=== PATIENT | female | born 1955 | race American Indian/Alaskan Native ===

== ENCOUNTER 2016-03-21 01:06 | Inpatient (IN) | payer OTHER ==
[2016-03-21] MEDS ORDERED: ZOFRAN IV ONE (01:38)
[2016-03-21] MEDS ORDERED: NACL 0.9% 1000 ML 1,000 ML IV ONE (01:38)
[2016-03-21 02:12] LABS: Mean Corpuscular HGB Conc 31 % (30-34); Mean Corpuscular Hemoglobin 32 pg (28-32); Mean Corpuscular Volume 104 fl (79-97); Platelet Count 202 K/mm3 (140-440); Red Blood Count 4.43 M/mm3 (3.65-5.03); Red Cell Distribution Width 19.5 % (13.2-15.2)
[2016-03-21 02:14] LABS: Hematocrit 46.3 % (30.3-42.9); Hemoglobin 14.4 gm/dl (10.1-14.3)
[2016-03-21 02:38] LABS: Alanine Aminotransferase 16 units/L (7-56); Albumin 4.8 g/dL (3.9-5); Albumin/Globulin Ratio 1.4 %; Alkaline Phosphatase 86 units/L (35-129); BUN/Creatinine Ratio 9.09; Bilirubin,Total 0.5 mg/dL (0.1-1.2); Blood Urea Nitrogen 10 mg/dL (7-17); Calcium 8.8 mg/dL (8.4-10.2); Chloride 88.7 mmol/L (98-107); Glucose 105 mg/dL (65-100); Potassium 5.7 mmol/L (3.6-5.0); Sodium 137 mmol/L (137-145); Total Protein 8.2 g/dL (6.3-8.2)
[2016-03-21 02:44] LABS: Anion Gap 49 mmol/L
[2016-03-21 02:46] LABS: Carbon Dioxide 5 mmol/L (22-30); Lipase 747 units/L (13-60)
[2016-03-21] MEDS ORDERED: NACL 0.9% 500 ML 500 ML IV ONE (03:13)
--- NOTE | 2016-03-21 03:14 | Emergency Department Report ---
ED General Adult HPI - General Chief complaint: Abdominal Pain Stated complaint: VOMITING Time Seen by Provider: 03/21/16 02:59 Source: patient, RN notes reviewed, old records reviewed Mode of arrival: Stretcher Limitations: No Limitations - History of Present Illness Initial comments: This is a 60-year-old female. I have evaluated her in the past. Primary care doctors with the [facility]. Past medical history includes hypertension, breast cancer, lumpectomy, status post radiation therapy. Patient recently admitted to the hospital for anemia and syncope. She was found to have a dilated cardiomyopathy with an ejection fraction of 35%. Patient declined cardiac catheterization. Patient also reports a history of pancreatitis. Patient complains of mild nausea and vomiting and abdominal cramping. She reports vomiting numerous times. Nonbloody, nonbilious. No irritative or obstructive urinary symptoms. Feels dizzy and lightheaded. Feels weak. These like her pancreatitis is acting up. No chest pain. Mild shortness of breath secondary to generalized fatigue. Patient was given pain medication and nausea medication prior to my evaluation. She reports that she feels improved at this time. -: Gradual Radiation: abdomen Quality: aching Consistency: now resolved Improves with: medication, rest Worsens with: none Associated Symptoms: loss of appetite, malaise, nausea/vomiting, weakness - Related Data Home Medications Medication Instructions Recorded Confirmed Last Taken No Known Home Medications [No 03/21/16 03/21/16 Unknown Reported Home Medications] Allergies Allergy/AdvReac Type Severity Reaction Status Date / Time No Known Allergies Allergy Unverified 01/12/15 19:20 ED Review of Systems ROS: Stated complaint: VOMITING Other details as noted in HPI Constitutional: malaise, weakness Eyes: as per HPI ENT: ear pain Cardiovascular: as per HPI Gastrointestinal: as per HPI, abdominal pain Genitourinary: as per HPI Musculoskeletal: as per HPI Skin: as per HPI Neurological: as per HPI, weakness ED Past Medical Hx - Past Medical History Hx Hypertension: Yes Additional medical history: AFib - Surgical History Additional Surgical History: LUMPECTOMY, cardiac cath 2 years ago - Social History Smoking Status: Current Every Day Smoker Substance Use Type: Alcohol - Medications Home Medications: Home Medications Medication Instructions Recorded Confirmed Last Taken Type No Known Home Medications [No 03/21/16 03/21/16 Unknown History Reported Home Medications] ED Physical Exam - General Limitations: No Limitations General appearance: alert, in no apparent distress - Head Head exam: Present: atraumatic, normocephalic - Eye Eye exam: Present: normal appearance - ENT ENT exam: Present: normal exam, normal orophraynx, mucous membranes moist, normal external ear exam - Neck Neck exam: Present: normal inspection, full ROM. Absent: tenderness, meningismus - Respiratory Respiratory exam: Present: normal lung sounds bilaterally. Absent: respiratory distress, wheezes, rales, rhonchi, stridor, chest wall tenderness - Cardiovascular Cardiovascular Exam: Present: regular rate, normal rhythm, normal heart sounds. Absent: bradycardia, tachycardia, irregular rhythm, systolic murmur, diastolic murmur, rubs, gallop - GI/Abdominal GI/Abdominal exam: Present: soft, normal bowel sounds. Absent: distended, tenderness, guarding, rebound, rigid - Extremities Exam Extremities exam: Present: normal inspection, full ROM, normal capillary refill. Absent: tenderness, pedal edema, joint swelling, calf tenderness - Back Exam Back exam: Present: normal inspection, full ROM. Absent: tenderness, CVA tenderness (R), CVA tenderness (L), muscle spasm, paraspinal tenderness, vertebral tenderness - Neurological Exam Neurological exam: Present: alert (there is no past pointing. Normal heel-to- montoya. Negative pronator drift.), oriented X3, other (Extraocular movements intact. Tongue midline. No facial droop. Facial sensation intact to light touch in the V1, V2, V3 distribution bilaterally. 5 and 5 strength in 4 extremities.. Sensation is intact to light touch in 4 extremities.). Absent: motor sensory deficit - Psychiatric Psychiatric exam: Present: normal affect, normal mood - Skin Skin exam: Present: warm, dry, intact, normal color. Absent: rash ED Course Vital Signs 03/21/16 03/21/16 03/21/16 01:20 01:23 01:30 Temperature 98.8 F Pulse Rate 99 H 98 H Pulse Rate [ Bilateral Throughout] Respiratory 20 20 Rate Respiratory Rate [Bilateral Throughout] Blood Pressure 157/73 144/82 Blood Pressure [Left] O2 Sat by Pulse 100 100 100 Oximetry 03/21/16 03/21/16 03/21/16 01:34 01:41 01:51 Temperature 98.1 F Pulse Rate 104 H 89 Pulse Rate [ Bilateral Throughout] Respiratory 20 23 Rate Respiratory Rate [Bilateral Throughout] Blood Pressure 148/79 148/79 Blood Pressure [Left] O2 Sat by Pulse 100 100 Oximetry 03/21/16 03/21/16 03/21/16 02:00 02:11 02:21 Temperature Pulse Rate 91 H 107 H 103 H Pulse Rate [ Bilateral Throughout] Respiratory 18 18 17 Rate Respiratory Rate [Bilateral Throughout] Blood Pressure 175/88 175/88 175/88 Blood Pressure [Left] O2 Sat by Pulse 100 100 100 Oximetry 03/21/16 03/21/16 03/21/16 02:31 02:41 02:51 Temperature Pulse Rate 106 H 89 90 Pulse Rate [ Bilateral Throughout] Respiratory 17 16 17 Rate Respiratory Rate [Bilateral Throughout] Blood Pressure 175/88 175/88 175/88 Blood Pressure [Left] O2 Sat by Pulse 100 100 100 Oximetry 03/21/16 03/21/16 03/21/16 03:00 05:48 05:50 Temperature Pulse Rate 113 H 107 H 105 H Pulse Rate [ Bilateral Throughout] Respiratory 17 22 19 Rate Respiratory Rate [Bilateral Throughout] Blood Pressure 176/86 176/86 176/86 Blood Pressure [Left] O2 Sat by Pulse 100 100 100 Oximetry 03/21/16 03/21/16 03/21/16 06:00 06:10 06:20 Temperature Pulse Rate 100 H 112 H 103 H Pulse Rate [ 102 H Bilateral Throughout] Respiratory 15 19 17 Rate Respiratory 16 Rate [Bilateral Throughout] Blood Pressure 176/86 176/86 176/86 Blood Pressure [Left] O2 Sat by Pulse 100 99 100 Oximetry 03/21/16 03/21/16 03/21/16 06:30 06:40 06:47 Temperature Pulse Rate 97 H 98 H Pulse Rate [ 104 H Bilateral Throughout] Respiratory 12 13 Rate Respiratory 16 Rate [Bilateral Throughout] Blood Pressure 176/86 176/86 Blood Pressure [Left] O2 Sat by Pulse 100 100 Oximetry 03/21/16 03/21/16 03/21/16 06:50 07:00 07:10 Temperature Pulse Rate 108 H 99 H 99 H Pulse Rate [ Bilateral Throughout] Respiratory 26 H 19 18 Rate Respiratory Rate [Bilateral Throughout] Blood Pressure 176/86 151/70 151/70 Blood Pressure [Left] O2 Sat by Pulse 100 100 100 Oximetry 03/21/16 03/21/16 03/21/16 07:20 07:30 07:40 Temperature Pulse Rate 95 H 126 H 98 H Pulse Rate [ Bilateral Throughout] Respiratory 14 18 15 Rate Respiratory Rate [Bilateral Throughout] Blood Pressure 151/70 151/70 123/70 Blood Pressure [Left] O2 Sat by Pulse 100 100 100 Oximetry 03/21/16 03/21/16 03/21/16 07:50 08:00 08:10 Temperature 98.5 F Pulse Rate 99 H 108 H 97 H Pulse Rate [ Bilateral Throughout] Respiratory 15 13 24 Rate Respiratory Rate [Bilateral Throughout] Blood Pressure 123/70 143/76 143/76 Blood Pressure 143/78 [Left] O2 Sat by Pulse 100 100 100 Oximetry 03/21/16 03/21/16 03/21/16 08:20 08:30 08:40 Temperature Pulse Rate 96 H 95 H 93 H Pulse Rate [ Bilateral Throughout] Respiratory 18 18 19 Rate Respiratory Rate [Bilateral Throughout] Blood Pressure 143/76 159/77 159/77 Blood Pressure [Left] O2 Sat by Pulse 100 100 100 Oximetry 03/21/16 03/21/16 03/21/16 08:50 09:00 09:10 Temperature Pulse Rate 108 H 94 H 99 H Pulse Rate [ Bilateral Throughout] Respiratory 16 21 22 Rate Respiratory Rate [Bilateral Throughout] Blood Pressure 159/77 153/71 153/71 Blood Pressure [Left] O2 Sat by Pulse 100 99 100 Oximetry 03/21/16 09:20 Temperature Pulse Rate 97 H Pulse Rate [ Bilateral Throughout] Respiratory 18 Rate Respiratory Rate [Bilateral Throughout] Blood Pressure 153/71 Blood Pressure [Left] O2 Sat by Pulse 100 Oximetry - Reevaluation(s) Reevaluation #1: 03/21/16 05:19 Differential diagnosis: Orthostasis, near vagal event, pancreatitis, colitis, diverticulitis, pneumonia, urinary tract infection Assessment and plan: 60-year-old female with elevated lipase, anion gap acidosis , metabolic acidosis, most likely secondary to nausea and vomiting. Abdomen is soft and benign. Chest x-rays within normal limits. CT scan of the abdomen and pelvis demonstrates normal appendix but suggests colitis. She will be given gentle IV fluid hydration. She will be given IV antibiotics, and she is found to be somewhat hyperkalemic with minimal hemolysis. Given that CAT scan demonstrates colitis, I will withhold Kayexalate. She will be treated with albuterol, sodium bicarbonate, insulin, dextrose. We will continue fluid resuscitation. She is not profoundly via overloaded at this time. She reports that she feels much improved. Case is discussed with the Hospital physician, Dr. Dorado, who accepts the patient to her service for colitis, with metabolic acidosis, and electrolyte derangement. 03/21/16 05:20 03/21/16 05:26 ED Medical Decision Making - Lab Data Result diagrams: 03/21/16 02:01 03/21/16 11:06 Vital Signs 03/21/16 03/21/16 01:20 01:34 Temperature 98.8 F 98.1 F Pulse Rate 99 H Respiratory 20 Rate Blood Pressure 157/73 O2 Sat by Pulse 100 Oximetry Lab Results 03/21/16 03/21/16 03/21/16 Range/Units 02:01 02:01 03:09 WBC 12.0 H (4.5-11.0) K/mm3 RBC 4.43 (3.65-5.03) M/mm3 Hgb 14.4 H (10.1-14.3) gm/dl Hct 46.3 H (30.3-42.9) % MCV 104 H (79-97) fl MCH 32 (28-32) pg MCHC 31 (30-34) % RDW 19.5 H (13.2-15.2) % Plt Count 202 (140-440) K/mm3 VBG pH (7.320-7.420) Sodium 137 (137-145) mmol/L Potassium 5.7 H (3.6-5.0) mmol/L Chloride 88.7 L (98-107) mmol/L Carbon Dioxide 5 L* (22-30) mmol/L Anion Gap 49 mmol/L BUN 10 (7-17) mg/dL Creatinine 1.1 (0.7-1.2) mg/dL Estimated GFR > 60 ml/min BUN/Creatinine Ratio 9.09 % Glucose 105 H (65-100) mg/dL POC Glucose 92 (70-105) Calcium 8.8 (8.4-10.2) mg/dL Magnesium (1.7-2.3) mg/dL Total Bilirubin 0.5 (0.1-1.2) mg/dL AST 42 H (5-40) units/L ALT 16 (7-56) units/L Alkaline Phosphatase 86 (35-129) units/L NT-Pro-B Natriuret Pep 220.4 (0-900) pg/mL Total Protein 8.2 (6.3-8.2) g/dL Albumin 4.8 (3.9-5) g/dL Albumin/Globulin Ratio 1.4 % Lipase 747 H (13-60) units/L 03/21/16 03/21/16 Range/Units 04:26 04:26 WBC (4.5-11.0) K/mm3 RBC (3.65-5.03) M/mm3 Hgb (10.1-14.3) gm/dl Hct (30.3-42.9) % MCV (79-97) fl MCH (28-32) pg MCHC (30-34) % RDW (13.2-15.2) % Plt Count (140-440) K/mm3 VBG pH 7.140 L* (7.320-7.420) Sodium 137 (137-145) mmol/L Potassium 6.4 H* (3.6-5.0) mmol/L Chloride 92.7 L (98-107) mmol/L Carbon Dioxide 7 L* (22-30) mmol/L Anion Gap 44 mmol/L BUN 9 (7-17) mg/dL Creatinine 1.0 (0.7-1.2) mg/dL Estimated GFR > 60 ml/min BUN/Creatinine Ratio 9.00 % Glucose 105 H (65-100) mg/dL POC Glucose (70-105) Calcium 8.0 L (8.4-10.2) mg/dL Magnesium 1.6 L (1.7-2.3) mg/dL Total Bilirubin (0.1-1.2) mg/dL AST (5-40) units/L ALT (7-56) units/L Alkaline Phosphatase (35-129) units/L NT-Pro-B Natriuret Pep (0-900) pg/mL Total Protein (6.3-8.2) g/dL Albumin (3.9-5) g/dL Albumin/Globulin Ratio % Lipase (13-60) units/L - Radiology Data Radiology results: report reviewed, image reviewed X-ray chest negative. Negative for acute disease. CT scan of the abdomen and pelvis suggest colitis. Critical care attestation.: If time is entered above; I have spent that time in minutes in the direct care of this critically ill patient, excluding procedure time. ED Disposition Clinical Impression: Hypomagnesemia, Metabolic acidosis, Colitis, Hyperkalemia Disposition: OP ADMITTED IP TO THIS HOSP Is pt being admited?: Yes Does the pt Need Aspirin: No Condition: Stable
[2016-03-21] MEDS ORDERED: NACL ONE (03:21)
[2016-03-21] MEDS ORDERED: NACL 0.9% 500 ML IV SCH (04:00)
--- NOTE | 2016-03-21 04:21 | Cat Scan Report ---
FINAL REPORT PROCEDURE: CT ABDOMEN PELVIS W CON TECHNIQUE: Computerized axial tomography of the abdomen and pelvis was performed after the IV injection of iodinated nonionic contrast. HISTORY: pancreatitis COMPARISON: No prior studies are available for comparison. FINDINGS: Visualized lower thorax: No significant abnormality. Liver: The liver is fatty infiltrated.. Spleen: Normal size and attenuation. Gallbladder and biliary system: Normal. Pancreas: The pancreas has a normal size. No pseudocyst. No masses.. Adrenals: Normal. Kidneys: Both kidneys have normal size. No hydronephrosis. No renal stones or masses. GI tract: The stomach is normal. The small bowel has a normal caliber. No obstruction is seen. There is some thickening of the bowel wall involving the cecum, ascending colon and a portion of the transverse colon. Colitis is suspected. The appendix is not visualized on this study. There is moderate fecal debris throughout colon.. Lymph nodes and mesentery: Normal. Vasculature: Moderate atherosclerosis of the aorta and branching vessels. Bladder: Normal. Reproductive organs: The uterus is enlarged and as retroverted. There are multiple small masses identified on the uterus. Fibroid formation is suspected. No adnexal masses.. Peritoneum: No free fluid. Musculoskeletal structures: No significant abnormality. Other: None. IMPRESSION: There is some thickening of the bowel wall involving the cecum, ascending colon in the portion of transverse colon, colitis is suspected. No complication at this time. No evidence of intestinal or urinary tract obstruction. There is moderate fecal debris throughout the colon. The uterus is retroverted and slightly enlarged. There are multiple small masses on the uterus, fibroid formation is suspected. Fatty infiltration of the liver is noted.
[2016-03-21 04:58] LABS: Blood Urea Nitrogen 9 mg/dL (7-17); Chloride 92.7 mmol/L (98-107); Glucose 105 mg/dL (65-100); Magnesium 1.6 mg/dL (1.7-2.3); Sodium 137 mmol/L (137-145)
[2016-03-21 05:11] LABS: Potassium 6.4 mmol/L (3.6-5.0)
[2016-03-21 05:13] LABS: Anion Gap 44 mmol/L; Carbon Dioxide 7 mmol/L (22-30)
[2016-03-21] MEDS ORDERED: SODIUM BICARBONATE IV ONE ×2 (05:14)
[2016-03-21] MEDS ORDERED: D50W (25GM) IV ONE (05:14)
[2016-03-21] MEDS ORDERED: PROVENTIL IH ONE ×2 (05:14→05:15)
[2016-03-21] MEDS ORDERED: LEVAQUIN 500MG/100ML 500 MG/100 ML BAG IV ONE (05:14)
[2016-03-21] MEDS ORDERED: MAGNESIUM SULFATE 2GM/50ML 2 GM/50 ML BAG IV ONE (05:15)
[2016-03-21] MEDS ORDERED: REGLAN IV ONE (05:20)
--- NOTE | 2016-03-21 05:49 | History and Physical Report ---
History of Present Illness Date of examination: 03/21/16 Date of admission: 03/21/16 Chief complaint: Nausea and vomiting and abdominal pain History of present illness: This is a 60 y/o female with h/o hypertension, breast cancer status post radiation therapy and lumpectomy, previous history of pancreatitis presented with nausea and vomiting and abdominal cramping. She described her vomiting is nonbloody nonbilious. Her symptom is progressively getting worse and she was feeling dizzy and lightheaded. In the ER her potassium noted to be 6.7, magnesium 1.[address] scan of the abdomen and pelvis showed possible colitis. She is getting admitted for further management and evaluation. Past medical History: h/o h/o hypertension, breast cancer status post radiation therapy and lumpectomy, previous history of pancreatitis, cardiomyopathy with EF 35%. Primary care doctors with the [place]. Past surgical History: s/p Lumpectomy. Social History: Lives with family, denies any smoking, drinking and elicit drug abuse. Family History: None. Review of System: Constitutional: no fever, no chills, no weight loss Ears, eyes, nose, mouth and throat: no nasal congestion, no nasal discharge, no sinus pressure, no vision change, no red eye. Neck: No neck pain or rigidity. Cardiovascular: No chest pain, no orthopnea, no palpitations, no leg swelling Respiratory: No shortness of breath, no cough, no congestion, no wheezing Gastrointestinal: + abdominal pain, + nausea, + vomiting Genitourinary : no dysuria, no hematuria Musculoskeletal: no joint swelling or muscle ache Integumentary: no rash, no pruritis Neurological: no parathesias, no numbness, no tingling Endocrine: no cold or heat intolerance, no polyuria or polydipsia Hematologic/Lymphatic: no easy bruising, no easy bleeding, no gland swelling Allergic/Immunologic: no urticaria, no angioedema. Medications and Allergies Allergies Allergy/AdvReac Type Severity Reaction Status Date / Time No Known Allergies Allergy Unverified 01/12/15 19:20 Home Medications Medication Instructions Recorded Confirmed Last Taken Type No Known Home Medications [No 03/21/16 03/21/16 Unknown History Reported Home Medications] Active Meds: Active Medications Levofloxacin/Dextrose (Levaquin 500mg/100ml) 500 mg in 100 mls @ 100 mls/hr IV ONCE ONE Stop: 03/21/16 06:13 Metronidazole (Flagyl 500 Mg/100 Ml) 500 mg in 100 mls @ 200 mls/hr IV NOW NR Stop: 03/21/16 06:29 Exam - Physical Exam Narrative exam: GENERAL: This is well-developed well-nourished WF lying on bed appeared to be in no discomfort. HEENT: Normocephalic. Atraumatic. Extraocular motions are intact. No conjunctival congestion or icterus. Patient has moist mucous membranes. External auditory canal and nares patent bilaterally. NECK: Supple. Trachea midline. No JVD, thyromagaly or lymphadenopathy. CHEST/LUNGS: Clear to auscultated bilaterally. There is no respiratory distress noted, breathing nonlabored. No wheezes crackles or rhonchi. HEART/CARDIOVASCULAR: Regular in rate and rhythm. PMI at the apex. There is no gallop rub or murmur. ABDOMEN: Abdomen is soft, mild diffuse tenderness. Patient has normal bowel sounds. There is no abdominal distention. No organomagaly or rigidity. SKIN: There is no rash, no erythrema. There is no diaphoresis. Warm and dry. NEUROLOGY: The patient is awake, alert, and oriented. The patient is cooperative. The patient has normal speech. No focal motor deficit. MUSCULOSKELETAL: No joint effusion or tenderness. Muscle strength equal bilaterally. No muscle wasting. EXTRIMITY: No edema, cyanosis or clubbing. PSYCH: No depression or anxiety noted. Cooperative. - Constitutional Vitals: Temp Pulse Resp BP Pulse Ox 98.1 F 99 H 20 157/73 100 03/21/16 01:34 03/21/16 01:20 03/21/16 01:20 03/21/16 01:20 03/21/16 01:20 Results - Labs CBC & Chem 7: 03/21/16 02:01 03/21/16 04:26 Labs: Laboratory Last Values WBC 12.0 K/mm3 (4.5-11.0) H 03/21/16 02:01 RBC 4.43 M/mm3 (3.65-5.03) 03/21/16 02:01 Hgb 14.4 gm/dl (10.1-14.3) H 03/21/16 02:01 Hct 46.3 % (30.3-42.9) H 03/21/16 02:01 MCV 104 fl (79-97) H 03/21/16 02:01 MCH 32 pg (28-32) 03/21/16 02:01 MCHC 31 % (30-34) 03/21/16 02:01 RDW 19.5 % (13.2-15.2) H 03/21/16 02:01 Plt Count 202 K/mm3 (140-440) 03/21/16 02:01 VBG pH 7.140 (7.320-7.420) L* 03/21/16 04:26 Sodium 137 mmol/L (137-145) 03/21/16 04:26 Potassium 6.4 mmol/L (3.6-5.0) H* 03/21/16 04:26 Chloride 92.7 mmol/L (98-107) L 03/21/16 04:26 Carbon Dioxide 7 mmol/L (22-30) L* 03/21/16 04:26 Anion Gap 44 mmol/L 03/21/16 04:26 BUN 9 mg/dL (7-17) 03/21/16 04:26 Creatinine 1.0 mg/dL (0.7-1.2) 03/21/16 04:26 Estimated GFR > 60 ml/min 03/21/16 04:26 BUN/Creatinine Ratio 9.00 % 03/21/16 04:26 Glucose 105 mg/dL (65-100) H 03/21/16 04:26 POC Glucose 92 (70-105) 03/21/16 03:09 Calcium 8.0 mg/dL (8.4-10.2) L 03/21/16 04:26 Magnesium 1.6 mg/dL (1.7-2.3) L 03/21/16 04:26 Total Bilirubin 0.5 mg/dL (0.1-1.2) 03/21/16 02:01 AST 42 units/L (5-40) H 03/21/16 02:01 ALT 16 units/L (7-56) 03/21/16 02:01 Alkaline Phosphatase 86 units/L (35-129) 03/21/16 02:01 NT-Pro-B Natriuret Pep 220.4 pg/mL (0-900) 03/21/16 02:01 Total Protein 8.2 g/dL (6.3-8.2) 03/21/16 02:01 Albumin 4.8 g/dL (3.9-5) 03/21/16 02:01 Albumin/Globulin Ratio 1.4 % 03/21/16 02:01 Lipase 747 units/L (13-60) H 03/21/16 02:01 - Imaging and Cardiology CT scan - abdomen: report reviewed (Thickening of the bowel wall involving the cecum ascending colon and some portion of the transverse colon, colitis is suspected. Moderate fecal debris throughout the colon.) Assessment and Plan Assessment and plan: Sepsis with acute colitis Acute colitis Acute pancreatitis, likely Severe hyperkalemia Severe metabolic acidosis History of CHF with EF 35% Plan: Admit to medicine Place on IV Levaquin and Flagyl We'll get blood culture and stool culture Gentle IV fluid hydration as patient has history of CHF Place on bicarbonate drip Monitor BMP every 6 hours Give insulin D50, calcium chloride, for hyperkalemia avoid kayexlate to avoid colonic necrosis Trend lipase level Keep nothing by mouth for now except med Resume home meds GI and DVT prophylaxis If no improvement of N/V symptoms in 24 hour consult GI It took me about 42 minutes for initial care of this patient including history and physical, reviewing initial lab results and ER documents, placing admission orders, bedside counseling and coordination of care. Advance Directives: Yes VTE prophylaxis?: Mechanical Plan of care discussed with patient/family: Yes
[2016-03-21] MEDS ORDERED: FLAGYL 500 MG/100 ML 500 MG/100 ML BAG IV NR (06:00)
[2016-03-21] MEDS ORDERED: CALCIUM CHLORIDE IV ONE (06:03)
[2016-03-21] MEDS ORDERED: MORPHINE IV PRN (06:03)
[2016-03-21] MEDS ORDERED: TYLENOL PO PRN (06:03)
[2016-03-21] MEDS ORDERED: ZOFRAN IV PRN (06:03)
[2016-03-21] MEDS ORDERED: AMBIEN PO PRN (06:03)
[2016-03-21] MEDS ORDERED: SODIUM BICARBONATE 150 MEQ in D5W 1,000 ML IV ONE (06:08)
--- NOTE | 2016-03-21 06:42 | Admit Criteria Form ---
Admission Criteria Documentation: SEPSIS and OTHER FEBRILE ILLNESS, W/O FOCAL INFECTION Clinical Indications for Admission to Inpatient Care ( Place 'X' for any and all applicable criteria): Admission is indicated for ANY ONE of the following (1)(2)(3)(4): [ ] I. Bacteremia [ ]II. Suspected or identified specific infection requiring hospitalization (eg, meningitis, endocarditis) [ ]III. Hemodynamic instability [ ]IV. Altered mental status [ ]V. Failure or unavailability of outpatient antimicrobial treatment [ ]. Hypoxemia [ ]VII. Seizures [ ]VIII. High-risk febrile neutropenia [ ]IX. Need for parenteral antibiotic in patient who is likely to abuse vascular access device (eg, injection drug user) [A](7) [ ]X. Temperature greater than 104.9 degrees F (40.5 degrees C) (oral) [ X]XI. Inpatient admission required rather than observation care because of ANY ONE of the following: [ ]1) Specific infection identified that is too severe for outpatient treatment or observation care trial [ X]2) Metabolic disorder (eg, hypoglycemia, hyperglycemia, metabolic acidosis) that is severe or persistent [ ]3) Temperature greater than 103.1 degrees F (39.5 degrees C) ( oral) that is not responsive to observation care treatment [ ]4) IV fluid to replace significant ongoing (eg, for over 24 hours) losses (> 3 L/m2 per day) [ ]5) Supplemental oxygen or respiratory treatments for over 24 hours that is performable only in acute inpatient setting [ ]6) Parenteral nutrition regimen need that must be implemented on inpatient basis [ ]7) Strict or protective (eg, laminar flow) isolation [X ]8) Other condition, treatment or monitoring requiring inpatient admission Extended stay beyond goal length of stay may be needed for(1)(3) [ ]a) Sepsis or septic shock(22) [ ]b) Positive blood cultures [ ]c) Insufficient oral intake [ ]d) High-risk febrile neutropenia(29)(30) [ ]e) Continued fever and clinical instability [ ]f) Clinically active comorbid illness (e.g,heart failure, renal failure , diabetes) The original [employer] [facility] [employer] content created by Thuy Mora has been revised. The portions of the content which have been revised are identified through the use of italic text or in bold, and [employer] has neither reviewed nor approved the modified material. All other unmodified content is copyright [facility]. Please see references footnoted in the original [facility] edition 2016 Admission Criteria Met: Yes
[2016-03-21] MEDS ORDERED: D5/0.45NS 1,000 ML IV SCH (07:00)
[2016-03-21] MEDS: FLAGYL 500 MG/100 ML 500 MG/100 ML BAG IV SCH ×3 (07:11→17:02)
--- NOTE | 2016-03-21 07:57 | XRay Report ---
AP CHEST: HISTORY: Chest pain, nausea and vomiting, pancreatitis. AP view of the chest demonstrates a normal mediastinal and cardiac contour with clear lungs and normal bony and soft tissue structures. IMPRESSION: Unremarkable AP chest.
[2016-03-21] MEDS ORDERED: PEPCID IV ONE (09:25)
[2016-03-21] MEDS: PEPCID IV SCH ×2 (10:03→21:34)
--- NOTE | 2016-03-21 11:53 | Progress Note ---
Assessment and Plan Assessment and plan: 1. Sepsis. Continued to trend lactic acid levels. Follow-up blood cultures. Continue IV antibiotic. 2. Acute colitis. ? Ischemic versus infectious. Continue antibiotics as above. Await GI consultation. 3. Acute pancreatitis. Lipase was 747. Continue to follow serial lipase levels. GI consultation pending. 4. Severe hyperkalemia. Patient is status post D 50/insulin, Kayexalate and calcium chloride. 5. Severe metabolic acidosis. Etiology likely secondary to sepsis/colitis. 6. Chronic systolic CHF. Compensated. History Interval history: This is a 60 y/o female with h/o hypertension, breast cancer status post radiation therapy and lumpectomy, previous history of pancreatitis presented with nausea and vomiting and abdominal cramping. She described her vomiting is nonbloody nonbilious. Her symptoms were progressively getting worse and she was feeling dizzy and lightheaded. In the ER her potassium noted to be 6.7, magnesium 1.[address] scan of the abdomen and pelvis showed possible colitis. Hospitalist Physical - Constitutional Vitals: Temp Pulse Resp BP Pulse Ox 98.2 F 102 H 20 135/74 100 03/21/16 11:31 03/21/16 11:31 03/21/16 11:31 03/21/16 11:31 03/21/16 11:31 General appearance: Present: no acute distress, well-nourished - EENT Eyes: Present: PERRL, EOM intact ENT: hearing intact, clear oral mucosa, dentition normal - Neck Neck: Present: supple, normal ROM - Respiratory Respiratory effort: normal Respiratory: bilateral: CTA - Cardiovascular Rhythm: regular Heart Sounds: Present: S1 & S2. Absent: gallop, rub - Extremities Extremities: no ischemia, No edema, Full ROM - Abdominal General gastrointestinal: soft, non-tender, non-distended, normal bowel sounds - Integumentary Integumentary: Present: clear, warm, dry - Neurologic Neurologic: CNII-XII intact, moves all extremities Results - Labs CBC & Chem 7: 03/21/16 02:01 03/21/16 04:26 Labs: Laboratory Last Values WBC 12.0 K/mm3 (4.5-11.0) H 03/21/16 02:01 RBC 4.43 M/mm3 (3.65-5.03) 03/21/16 02:01 Hgb 14.4 gm/dl (10.1-14.3) H 03/21/16 02:01 Hct 46.3 % (30.3-42.9) H 03/21/16 02:01 MCV 104 fl (79-97) H 03/21/16 02:01 MCH 32 pg (28-32) 03/21/16 02:01 MCHC 31 % (30-34) 03/21/16 02:01 RDW 19.5 % (13.2-15.2) H 03/21/16 02:01 Plt Count 202 K/mm3 (140-440) 03/21/16 02:01 VBG pH 7.140 (7.320-7.420) L* 03/21/16 04:26 Sodium 137 mmol/L (137-145) 03/21/16 04:26 Potassium 6.4 mmol/L (3.6-5.0) H* 03/21/16 04:26 Chloride 92.7 mmol/L (98-107) L 03/21/16 04:26 Carbon Dioxide 7 mmol/L (22-30) L* 03/21/16 04:26 Anion Gap 44 mmol/L 03/21/16 04:26 BUN 9 mg/dL (7-17) 03/21/16 04:26 Creatinine 1.0 mg/dL (0.7-1.2) 03/21/16 04:26 Estimated GFR > 60 ml/min 03/21/16 04:26 BUN/Creatinine Ratio 9.00 % 03/21/16 04:26 Glucose 105 mg/dL (65-100) H 03/21/16 04:26 POC Glucose 193 (70-105) H 03/21/16 09:33 Calcium 8.0 mg/dL (8.4-10.2) L 03/21/16 04:26 Magnesium 1.6 mg/dL (1.7-2.3) L 03/21/16 04:26 Total Bilirubin 0.5 mg/dL (0.1-1.2) 03/21/16 02:01 AST 42 units/L (5-40) H 03/21/16 02:01 ALT 16 units/L (7-56) 03/21/16 02:01 Alkaline Phosphatase 86 units/L (35-129) 03/21/16 02:01 NT-Pro-B Natriuret Pep 220.4 pg/mL (0-900) 03/21/16 02:01 Total Protein 8.2 g/dL (6.3-8.2) 03/21/16 02:01 Albumin 4.8 g/dL (3.9-5) 03/21/16 02:01 Albumin/Globulin Ratio 1.4 % 03/21/16 02:01 Lipase 747 units/L (13-60) H 03/21/16 02:01
[2016-03-21 12:06] LABS: Blood Urea Nitrogen 7 mg/dL (7-17); Carbon Dioxide 14 mmol/L (22-30); Chloride 96.4 mmol/L (98-107); Glucose 195 mg/dL (65-100); Potassium 4.7 mmol/L (3.6-5.0); Sodium 141 mmol/L (137-145)
[2016-03-21 12:13] LABS: Anion Gap 35 mmol/L
[2016-03-22] MEDS: FLAGYL 500 MG/100 ML 500 MG/100 ML BAG IV SCH ×3 (00:44→16:39)
--- NOTE | 2016-03-22 04:14 | Consultation ---
REFERRING PHYSICIAN: Dr. Elmer Jorgensen MD INDICATION: 1. Nausea and vomiting. 2. Abdominal pain. HISTORY OF PRESENT ILLNESS: The patient is a 60-year-old black female with history of hypertension, breast cancer, status post radiation and lumpectomy with a reported history of pancreatitis, presents for abdominal pain. The patient reports a history of pancreatitis in the past, secondary to alcohol. She reports she still drinks, but has decreased use as such. The patient reports 2 days, nausea, vomiting, upper abdominal pain. The patient reports she feels the pain was consistent with her previous pancreatitis. She reports no diarrhea, constipation or rectal bleeding. She reports no fevers or chills. The patient subsequently came to the Emergency Room, where she noted to have a lipase of [address] showing possible colitis. Subsequently, she was admitted and GI consulted. No other specific problems or complaints. PAST MEDICAL HISTORY: 1. Hypertension. 2. Breast cancer, status post radiation and lumpectomy. 3. Pancreatitis, secondary to alcohol in the past. 4. Cardiomyopathy. MEDICATIONS: See chart. ALLERGIES: No known drug allergies. SOCIAL HISTORY: Reports alcohol use, now though she reports much decreased versus in the past. FAMILY HISTORY: Negative for colon cancer, IBD, or liver disease. REVIEW OF SYSTEMS: GENERAL: Reports mild weakness. HEENT: No visual complaints or tinnitus. PULMONARY: No shortness of breath. No cough. No chest pain. GASTROINTESTINAL: Reports abdominal pain. All points of 13-point review of systems otherwise negative. PHYSICAL EXAMINATION: VITAL SIGNS: Temperature of 98.4, pulse 93, respirations 20, blood pressure 116/72. GENERAL: Fairly nourished female in no acute distress. HEENT: Pupils equal, round, reactive to light and accommodation. Extraocular movements intact. PULMONARY: Clear to auscultation bilaterally. CARDIOVASCULAR: Regular rhythm. Normal S1, S2. ABDOMEN: Positive bowel sounds. Soft. Mild upper abdominal discomfort, no guarding, no rebound. SKIN: No obvious rashes. LABORATORY DATA: Pertinent for white count of 12, hemoglobin and hematocrit of 14.4 and 46.3, platelet count of 202. Chem-7, sodium of 141, potassium 4.7, chloride 96, CO2 is 14, BUN and creatinine of 7 and 1. LFTs within normal limits. Lipase is 747. CT scan showed mild colitis, left colon. 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 The patient overall is doing better, now reports tolerating clear liquid diet. Management as noted below. PLAN: 1. Antiemetics and pain medication per primary team. 2. Review CT scan. 3. Continue clear liquid diet. We will plan to advance to soft in a.m. if stable. 4. Follow labs including CRP. 5. Continue antibiotics as ordered. 6. If the patient is stable and tolerating p.o. in a.m., probable discharge tomorrow from GI standpoint, we will follow up as an outpatient. JOB# [id number] [facility]
[2016-03-22 05:58] LABS: Basophils % (Auto) 0.3 % (0.0-1.8); Hematocrit 33.6 % (30.3-42.9); Hemoglobin 11.3 gm/dl (10.1-14.3); Mean Corpuscular HGB Conc 34 % (30-34); Mean Corpuscular Hemoglobin 33 pg (28-32); Mean Corpuscular Volume 98 fl (79-97); Platelet Count 144 K/mm3 (140-440); Red Blood Count 3.42 M/mm3 (3.65-5.03); Red Cell Distribution Width 18.4 % (13.2-15.2); White Blood Count 5.1 K/mm3 (4.5-11.0)
[2016-03-22 06:17] LABS: BUN/Creatinine Ratio 6.66; Blood Urea Nitrogen 4 mg/dL (7-17); Carbon Dioxide 29 mmol/L (22-30); Chloride 94.6 mmol/L (98-107); Glucose 108 mg/dL (65-100); Potassium 4.1 mmol/L (3.6-5.0); Sodium 136 mmol/L (137-145)
[2016-03-22 06:25] LABS: Anion Gap 17 mmol/L
--- NOTE | 2016-03-22 09:31 | Gastroenterology Progress Note ---
Assessment and Plan 1. Pancreatitis vs Colitis -Patient states she is feeling much better this AM. NO N/V or abdominal pain -CT does not show inflammation to the pancreas, however does show some mild thickening of the cecum, ascending and transverse colon. The patient has no lower abdominal symptoms or diarrhea. No stool studies have been able to be obtained as the patient has had no BM. Would recommend oral ABX for total of 7 days. Avoid ETOH. -Follow up Lipase/ CRP today, if improved, ok to DC per GI standpoint. I have discussed follow in 2 weeks with the patient, office information given and patient is agreeable to the plan of care. Subjective Date of service: 03/22/16 Interval history: The patient states she is feeling much better, no N/V or abdominal pain, tolerating diet well. Objective - Constitutional Vitals: Temp Pulse Resp BP Pulse Ox 97.9 F 80 20 137/77 99 03/22/16 07:39 03/22/16 07:39 03/22/16 07:39 03/22/16 07:39 03/22/16 07:39 General appearance: no acute distress - EENT Eyes: EOM intact ENT: hearing intact - Neck Neck: supple - Cardiovascular Heart Sounds: Present: S1 & S2 - Gastrointestinal General gastrointestinal: Present: soft, non-tender, normal bowel sounds - Integumentary Integumentary: Present: warm, dry - Neurologic Neurological: alert and oriented x3 - Labs CBC & Chem 7: 03/22/16 04:51 03/22/16 04:51 Labs: Laboratory Results - last 24 hr 03/21/16 03/21/16 03/21/16 09:33 11:06 11:28 WBC RBC Hgb Hct MCV MCH MCHC RDW Plt Count Lymph % (Auto) [place] % (Auto) Eos % (Auto) Baso % (Auto) Lymph # [place] # Eos # Baso # Seg Neutrophils % Seg Neutrophils # Sodium 141 Potassium 4.7 D Chloride 96.4 L Carbon Dioxide 14 L D Anion Gap 35 BUN 7 Creatinine 1.0 Estimated GFR > 60 BUN/Creatinine Ratio 7.00 Glucose 195 H POC Glucose 193 H 199 H Lactic Acid Calcium 9.0 C-Reactive Protein 03/21/16 03/21/16 03/21/16 12:44 16:35 21:26 WBC RBC Hgb Hct MCV MCH MCHC RDW Plt Count Lymph % (Auto) [place] % (Auto) Eos % (Auto) Baso % (Auto) Lymph # [place] # Eos # Baso # Seg Neutrophils % Seg Neutrophils # Sodium Potassium Chloride Carbon Dioxide Anion Gap BUN Creatinine Estimated GFR BUN/Creatinine Ratio Glucose POC Glucose 164 H 148 H Lactic Acid 4.2 H* Calcium C-Reactive Protein 03/22/16 03/22/16 03/22/16 04:51 04:51 04:51 WBC 5.1 RBC 3.42 L Hgb 11.3 D Hct 33.6 D MCV 98 H D MCH 33 H MCHC 34 RDW 18.4 H Plt Count 144 Lymph % (Auto) 26.2 [place] % (Auto) 4.4 Eos % (Auto) 2.0 Baso % (Auto) 0.3 Lymph # 1.3 [place] # 0.2 Eos # 0.1 Baso # 0.0 Seg Neutrophils % 67.1 Seg Neutrophils # 3.4 Sodium 136 L Potassium 4.1 Chloride 94.6 L Carbon Dioxide 29 D Anion Gap 17 BUN 4 L Creatinine 0.6 L Estimated GFR > 60 BUN/Creatinine Ratio 6.66 Glucose 108 H POC Glucose Lactic Acid Calcium 9.0 C-Reactive Protein 2.90 H
[2016-03-22] MEDS ORDERED: LEVAQUIN 750MG/150ML 750 MG/150 ML BAG IV SCH (10:00)
[2016-03-22 10:35] LABS: C-Reactive Protein 2.5 mg/dL (0.00-1.30)
[2016-03-22] MEDS: PEPCID IV SCH ×2 (10:50→21:56)
--- NOTE | 2016-03-22 11:59 | Progress Note ---
Assessment and Plan Assessment and plan: 1. Sepsis. Continued to trend lactic acid levels. Lactic acid better today. Follow-up blood cultures. Continue IV antibiotic. 2. Acute colitis. ? Ischemic versus infectious. Continue antibiotics as above. GI following. Check stool studies. Stool studies were ordered but not collected yet. 3. Acute pancreatitis. Lipase was 747 on admission. Continue to follow serial lipase levels. CT scan shows no findings for pancreatitis. 4. Severe hyperkalemia. Patient is status post D 50/insulin, Kayexalate and calcium chloride. 5. Lactic acidosis. Improved. 6. Chronic systolic CHF. Compensated. History Interval history: No new issues overnight. Patient tolerating by mouth diet. Hospitalist Physical - Constitutional Vitals: Temp Pulse Resp BP Pulse Ox 97.9 F 80 20 137/77 99 03/22/16 07:39 03/22/16 07:39 03/22/16 07:39 03/22/16 07:39 03/22/16 07:39 General appearance: Present: no acute distress, well-nourished - EENT Eyes: Present: PERRL, EOM intact ENT: hearing intact, clear oral mucosa, dentition normal - Neck Neck: Present: supple, normal ROM - Respiratory Respiratory effort: normal Respiratory: bilateral: CTA - Cardiovascular Rhythm: regular Heart Sounds: Present: S1 & S2. Absent: gallop, rub - Extremities Extremities: no ischemia, No edema, Full ROM - Abdominal General gastrointestinal: soft, non-tender, non-distended, normal bowel sounds - Integumentary Integumentary: Present: clear, warm, dry - Neurologic Neurologic: CNII-XII intact, moves all extremities Results - Labs CBC & Chem 7: 03/22/16 04:51 03/22/16 04:51 Labs: Laboratory Last Values WBC 5.1 K/mm3 (4.5-11.0) 03/22/16 04:51 RBC 3.42 M/mm3 (3.65-5.03) L 03/22/16 04:51 Hgb 11.3 gm/dl (10.1-14.3) D 03/22/16 04:51 Hct 33.6 % (30.3-42.9) D 03/22/16 04:51 MCV 98 fl (79-97) H D 03/22/16 04:51 MCH 33 pg (28-32) H 03/22/16 04:51 MCHC 34 % (30-34) 03/22/16 04:51 RDW 18.4 % (13.2-15.2) H 03/22/16 04:51 Plt Count 144 K/mm3 (140-440) 03/22/16 04:51 Lymph % (Auto) 26.2 % (13.4-35.0) 03/22/16 04:51 [place] % (Auto) 4.4 % (0.0-7.3) 03/22/16 04:51 Eos % (Auto) 2.0 % (0.0-4.3) 03/22/16 04:51 Baso % (Auto) 0.3 % (0.0-1.8) 03/22/16 04:51 Lymph # 1.3 K/mm3 (1.2-5.4) 03/22/16 04:51 [place] # 0.2 K/mm3 (0.0-0.8) 03/22/16 04:51 Eos # 0.1 K/mm3 (0.0-0.4) 03/22/16 04:51 Baso # 0.0 K/mm3 (0.0-0.1) 03/22/16 04:51 Seg Neutrophils % 67.1 % (40.0-70.0) 03/22/16 04:51 Seg Neutrophils # 3.4 K/mm3 (1.8-7.7) 03/22/16 04:51 VBG pH 7.140 (7.320-7.420) L* 03/21/16 04:26 Sodium 136 mmol/L (137-145) L 03/22/16 04:51 Potassium 4.1 mmol/L (3.6-5.0) 03/22/16 04:51 Chloride 94.6 mmol/L (98-107) L 03/22/16 04:51 Carbon Dioxide 29 mmol/L (22-30) D 03/22/16 04:51 Anion Gap 17 mmol/L 03/22/16 04:51 BUN 4 mg/dL (7-17) L 03/22/16 04:51 Creatinine 0.6 mg/dL (0.7-1.2) L 03/22/16 04:51 Estimated GFR > 60 ml/min 03/22/16 04:51 BUN/Creatinine Ratio 6.66 % 03/22/16 04:51 Glucose 108 mg/dL (65-100) H 03/22/16 04:51 POC Glucose 148 (70-105) H 03/21/16 21:26 Lactic Acid 2.7 mmol/L (0.7-2.0) H* 03/22/16 09:53 Calcium 9.0 mg/dL (8.4-10.2) 03/22/16 04:51 Magnesium 1.6 mg/dL (1.7-2.3) L 03/21/16 04:26 Total Bilirubin 0.5 mg/dL (0.1-1.2) 03/21/16 02:01 AST 42 units/L (5-40) H 03/21/16 02:01 ALT 16 units/L (7-56) 03/21/16 02:01 Alkaline Phosphatase 86 units/L (35-129) 03/21/16 02:01 C-Reactive Protein 2.50 mg/dL (0.00-1.30) H 03/22/16 09:53 NT-Pro-B Natriuret Pep 220.4 pg/mL (0-900) 03/21/16 02:01 Total Protein 8.2 g/dL (6.3-8.2) 03/21/16 02:01 Albumin 4.8 g/dL (3.9-5) 03/21/16 02:01 Albumin/Globulin Ratio 1.4 % 03/21/16 02:01 Lipase 644 units/L (13-60) H 03/22/16 09:53
[2016-03-22] MEDS ORDERED: FLUARIX QUAD 2016-2017(36 MOS+) IM ONE (12:00)
[2016-03-23] MEDS: FLAGYL 500 MG/100 ML 500 MG/100 ML BAG IV SCH (02:01)
--- NOTE | 2016-03-23 09:03 | Discharge Summary ---
Providers - Providers Date of Admission: 03/21/16 05:29 Date of discharge: 03/23/16 Attending physician: EDUARDO MARTINEZ 03/21/16 11:59 Consult to Physician [CONS] Routine Consulting Provider: ISAMAR SCHULTZ Reason For Exam: colitis, pancreatitis Place consult to:: radha Notified:: office Phone number called:: [phone] Was contact made?: Yes If yes, spoke with:: humberto Time called:: 12:03 Primary care physician: RN PSYCH Hospitalization Reason for admission: abd pain Condition: Stable Hospital course: This is a 60 y/o female with h/o hypertension, breast cancer status post radiation therapy and lumpectomy, previous history of pancreatitis presented with nausea and vomiting and abdominal cramping. She described her vomiting is nonbloody nonbilious. In the ER her potassium noted to be 6.7, magnesium 1.[address] scan of the abdomen and pelvis showed possible colitis however did not show inflammation to the pancreas. Patient was seen by GI in consultation. Upon further examination, patient had no lower abdominal symptoms or diarrhea. GI recommended oral antibiotics for total of 7 days and to avoid alcohol. GI also recommended discharge and follow-up as an outpatient in 2 weeks. Dedicated discharged on 35 minutes. Disposition: DISCHARGED TO HOME OR SELFCARE - Discharge Diagnoses (1) Pancreatitis Status: Acute Qualifiers: Chronicity: C Pancreatitis type: P Acute pancreatitis complication: A (2) Colitis Status: Acute (3) Hyperkalemia Status: Resolved Core Measure Documentation - Palliative Care Palliative Care/ Comfort Measures: Not Applicable - Core Measures Any of the following diagnoses?: none Exam - Constitutional Vitals: Temp Pulse Resp BP Pulse Ox 98.5 F 85 20 145/87 98 03/23/16 04:40 03/23/16 04:40 03/23/16 04:40 03/23/16 04:40 03/23/16 04:40 General appearance: Present: no acute distress, well-nourished - EENT Eyes: Present: PERRL ENT: hearing intact, clear oral mucosa - Neck Neck: Present: supple, normal ROM - Respiratory Respiratory effort: normal Respiratory: bilateral: CTA - Cardiovascular Heart Sounds: Present: S1 & S2. Absent: rub, click - Extremities Extremities: pulses symmetrical, No edema Peripheral Pulses: within normal limits - Abdominal General gastrointestinal: Present: soft, non-tender, non-distended, normal bowel sounds Female genitourinary: Present: normal - Integumentary Integumentary: Present: clear, warm, dry - Musculoskeletal Musculoskeletal: gait normal, strength equal bilaterally - Psychiatric Psychiatric: appropriate mood/affect, intact judgment & insight - Neurologic Neurologic: CNII-XII intact, moves all extremities Plan Activity: no restrictions Weight Bearing Status: Full Weight Bearing Diet: regular, other (avoid ETOH) Follow up with: PRIMARY CARE, [Primary Care Provider] - 3-5 Days
[2016-03-23 09:42] VITALS: BP 134/86
== END 2016-03-23 13:13 | disposition home or self-care (01) | DRG 871 ==
LOC: ED 01:06 → 4A 05:29
PROVIDERS: ADMIT Internal Medicine; ATTEND Hospitalist
DX: A41.9 Sepsis, unspecified organism (principal); K85.20 Alcohol induced acute pancreatitis without necrosis or infection; E87.2 Acidosis; I50.22 Chronic systolic (congestive) heart failure; I11.0 Hypertensive heart disease with heart failure; K52.9 Noninfective gastroenteritis and colitis, unspecified; E87.5 Hyperkalemia; Z85.3 Personal history of malignant neoplasm of breast; Z98.890 Other specified postprocedural states
CPT/HCPCS: 36415; 71010; 74177; 80048; 80053; 82140; 82805; 82962; 83690; 83735; 83880; 85025; 85027; 86140; 87040; 90686; 93005; 93010; 94644; 96365; 96366; 96375; 96376; 99406; J1815; J1956; J2405; J2765; J3475; J7030; J7040; J7070; Q9967

== ENCOUNTER 2017-10-24 07:51 | Outpatient (CLI) | payer BC ==
[2017-10-24 14:28] LABS: Basophils # (Auto) 0.1 K/mm3 (0.0-0.1); Basophils % (Auto) 0.9 % (0.0-1.8); Eosinophils # (Auto) 0.3 K/mm3 (0.0-0.4); Eosinophils % (Auto) 4.5 % (0.0-4.3); Hematocrit 41.4 % (30.3-42.9); Hemoglobin 13.8 gm/dl (10.1-14.3); Lymphocytes # (Auto) 2.7 K/mm3 (1.2-5.4); Lymphocytes % (Auto) 47.1 % (13.4-35.0); Mean Corpuscular HGB Conc 33 % (30-34); Mean Corpuscular Hemoglobin 30 pg (28-32); Mean Corpuscular Volume 89 fl (79-97); Monocytes # (Auto) 0.3 K/mm3 (0.0-0.8); Monocytes % (Auto) 4.7 % (0.0-7.3); Platelet Count 290 K/mm3 (140-440); Red Blood Count 4.63 M/mm3 (3.65-5.03); Red Cell Distribution Width 14.5 % (13.2-15.2)
--- NOTE | 2017-10-24 14:43 | Mammography Report ---
BILATERAL DIGITAL SCREENING MAMMOGRAM WITH CAD: 10/24/17 07:51:00 CLINICAL: Routine screening.Breast cancer survivor status post right mastectomy with radiation therapy. COMPARISON:None available. However she apparently had a previous mammogram at [facility]. FINDINGS: The breasts are heterogeneously dense, which may obscure small masses. Right upper outer posterior surgical scar with benign dystrophic calcifications. No mass, suspicious architectural distortion or suspicious calcifications. IMPRESSION: No mammographic evidence of malignancy. BI-RADS CATEGORY: 2 -- Benign RECOMMENDATION: Routine mammographic screening in one year. We will attempt to obtain a comparison mammogram and make an addendum to this report if one is received. COMMENT: Patient follow-up letters are generated via our [employer] application.
[2017-10-24 14:50] LABS: Alanine Aminotransferase 16 units/L (7-56); Albumin 4.6 g/dL (3.9-5); BUN/Creatinine Ratio 11; Blood Urea Nitrogen 10 mg/dL (7-17); Calcium 9.7 mg/dL (8.4-10.2); Chol/HDL Ratio 3.45 %; HDL Cholesterol 74 mg/dL (40-59); Hemolysis Index 14; LDL Cholesterol,Direct 155 mg/dL (50-130)
== END 2017-10-24 07:52 | disposition home or self-care (01) ==
LOC: MAMMO 07:51
PROVIDERS: ATTEND Family Medicine
DX: Z12.31 Encounter for screening mammogram for malignant neoplasm of breast (principal); I10 Essential (primary) hypertension; F17.210 Nicotine dependence, cigarettes, uncomplicated; Z90.12 Acquired absence of left breast and nipple
CPT/HCPCS: 36415; 77067; 80053; 80061; 82306; 85025

== ENCOUNTER 2020-12-05 08:05 | Outpatient (CLI) | payer BC ==
[2020-12-05 08:33] LABS: Hematocrit 38.4 % (30.3-42.9); Hemoglobin 12.5 gm/dl (10.1-14.3); Mean Corpuscular HGB Conc 33 % (30-34); Mean Corpuscular Volume 91 fl (79-97); Platelet Count 304 K/mm3 (140-440); Red Blood Count 4.21 M/mm3 (3.65-5.03); Red Cell Distribution Width 14.4 % (13.2-15.2)
[2020-12-05 09:06] LABS: Alanine Aminotransferase 14 units/L (7-56); Albumin 4.4 g/dL (3.9-5); BUN/Creatinine Ratio 12; Blood Urea Nitrogen 12 mg/dL (7-17); Calcium 9.4 mg/dL (8.4-10.2); Chol/HDL Ratio 2.68 %; HDL Cholesterol 69 mg/dL (40-59); Hemolysis Index 7; LDL Cholesterol,Direct 93 mg/dL (50-130)
[2020-12-05 09:22] LABS: Free T4 (Free Thyroxine) 1.16 ng/dL (0.76-1.46)
[2020-12-05 17:23] LABS: Creatinine,Urine 48.4 mg/dL (0.1-20.0)
[2020-12-05 17:24] LABS: Microalbumin/Creatinine Ratio 24.7 ug/mg
[2020-12-09 14:50] LABS: Vitamin D, 25-OH, D2 <4 ng/mL
== END 2020-12-05 08:06 | disposition home or self-care (01) ==
LOC: LAB 08:05
PROVIDERS: ATTEND Family Medicine
DX: Z00.01 Encounter for general adult medical examination with abnormal findings (principal); E78.5 Hyperlipidemia, unspecified; E55.9 Vitamin D deficiency, unspecified
CPT/HCPCS: 36415; 80053; 80061; 82043; 82306; 84439; 84443; 85027

== ENCOUNTER 2020-12-19 08:15 | Outpatient (CLI) | payer BC ==
--- NOTE | 2020-12-19 11:33 | Mammography Report ---
BILATERAL DIGITAL SCREENING MAMMOGRAM WITH CAD WITH TOMOSYNTHESIS HISTORY: Screening mammogram, history of right breast surgery. TECHNIQUE: Routine digital mammographic imaging performed. This examination was interpreted with lyubov mac benefit of Computer-aided Detection analysis. Tomosynthesis images were acquired and reviewed. COMPARISON: 10/24/2017. FINDINGS: Breast Density: heterogeneously dense breast parenchymal pattern which somewhat lessens the sensitivi ty of the evaluation. Digital CC and MLO views demonstrate no mammographic evidence of malignancy. Stable right upper oute r posterior breast postsurgical change. IMPRESSION: No mammographic evidence of malignancy. If the clinical examination remains stable, recommend bilate ral mammogram in approximately one year. BIRADS 2: Benign Finding(s). FURTHER INFORMATION: According to the [employer], yearly mammograms are recommend ed starting at age 40 and continuing as long as a woman is in good health. Clinical Breast Exams shou ld be part of a periodic health exam-about every 3 years for women in their 20s and 30s and every yea r for women 40 and over. Breast self exam is an option for women starting in their 20s. Any breast ch shante noted on a breast self exam should be reported promptly to the patient's healthcare provider. Br east MRI is recommended for women with an approximately 20-25% or greater lifetime risk of breast can cer, including women with a strong family history of breast or ovarian cancer and women who have been treated for Hodgkin's disease. A negative Mammography report should not discourage follow up or biopsy of a clinically significant f inding and/or abnormality. Dense breast tissue may obscure small neoplasms. The patient will be entered into a reminder system with a target due date for the next screening mamm ogram. Signer Name: Mihai Dinero MD Signed: 12/19/2020 11:29 AM Workstation Name: [id number]
== END 2020-12-19 08:16 | disposition home or self-care (01) ==
LOC: SPVWC 08:15
PROVIDERS: ATTEND Family Medicine
DX: Z12.31 Encounter for screening mammogram for malignant neoplasm of breast (principal)
CPT/HCPCS: 77063; 77067

== ENCOUNTER 2021-11-09 08:33 | Outpatient (CLI) | payer BC ==
[2021-11-09 09:07] LABS: Basophils % (Auto) 0.8 % (0.0-1.8); Eosinophils # (Auto) 0.4 K/mm3 (0.0-0.4); Eosinophils % (Auto) 7.4 % (0.0-4.3); Hematocrit 39.5 % (30.3-42.9); Hemoglobin 13.1 gm/dl (10.1-14.3); Lymphocytes % (Auto) 35.4 % (13.4-35.0); Mean Corpuscular HGB Conc 33 % (30-34); Mean Corpuscular Volume 89 fl (79-97); Monocytes # (Auto) 0.3 K/mm3 (0.0-0.8); Monocytes % (Auto) 6.1 % (0.0-7.3); Platelet Count 316 K/mm3 (140-440); Red Blood Count 4.43 M/mm3 (3.65-5.03); Red Cell Distribution Width 14.5 % (13.2-15.2)
[2021-11-09 09:11] LABS: Bilirubin,Urine NEG (Negative); Blood,Urine SM (Negative); Color,Urine Yellow (Yellow); Protein,Urine <15 mg/dL mg/dL (Negative)
[2021-11-09 09:12] LABS: Bacteria,Urine 2+ /HPF (Negative); Mucus,Urine FEW /HPF; RBC,Urine < 1.0 /HPF (0.0-6.0); Urobilinogen,Urine < 2 mg/dL (<2.0)
[2021-11-09 09:18] LABS: Albumin 4.8 g/dL (3.9-5); Calcium 9.7 mg/dL (8.4-10.2); Chol/HDL Ratio 2.65 %
== END 2021-11-09 08:34 | disposition home or self-care (01) ==
LOC: LAB 08:33
PROVIDERS: ATTEND Internal Medicine
DX: Z00.00 Encounter for general adult medical examination without abnormal findings (principal); R03.0 Elevated blood-pressure reading, without diagnosis of hypertension; R53.83 Other fatigue; N39.0 Urinary tract infection, site not specified; E66.3 Overweight
CPT/HCPCS: 36415; 80053; 80061; 81001; 82306; 83036; 84443; 85025; 87086